=== PATIENT | female | born 2000 | race Caucasian/White ===

== ENCOUNTER 2024-11-26 13:20 | Outpatient (AMB) | payer OTHER, SELFPAY ==
--- NOTE | 2024-11-26 13:21 | MHC.OFFVIS ---
Vital Signs 11/26/24 13:24 Height 5 ft 10 in Weight 160 lb 14.999 oz BMI 23.1 BP 100/70 Blood Pressure Location Lt brachial Position Sitting Pulse 80 Pulse Source Pulse Oximeter Pulse Oximetry (%) 98 Oxygen Delivery Method Room Air Intake Visit Reasons: Hx of Asthma Canine Service Teacher Required: No Accompanied by: Self / Same As Patient Allergies No Known Allergies Allergy (Verified 11/26/24 13:24) HPI Comments Details: The patient is here for pulmonary evaluation. The patient is a 23 year woman with a known history of asthma who apparently has been in usual state health until recently back in the winter of 2024 she started developing asthma exacerbation after developing a viral syndrome. She did require prednisone. She did go to urgent care at that time and she was treated effectively. At baseline she does use Asmanex and does have a rescue inhaler. 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 Prior to her raises she would use her Ventolin as needed 15 minutes before just to preemptively get her ready for the race. The patient has not had to do that since she is not raising any longer. But she still has a rescue inhaler but typically does not use it more than twice a month. Usually the fall and spring her worst seasons in the winter tends to be a better season. She does take Asmanex 2 inhalations daily she can always decrease to 1 inhalation daily during her winter season. The patient also had been using Singulair but she is not using any longer. She did have pulmonary spirometry studies done back in September of 2023 elsewhere. 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 The patient will undergo pulmonary function studies with the next visit sometime in June of 2025. If she develops any issues prior to this she can always call for an earlier assessment. [facility] Medical History (Updated 11/26/24 @ 21:29 by Arsenio Peres MD) Chronic allergic rhinitis Asthma Social History (Updated 11/26/24 @ 13:27 by Patt Yan CMA) Patient Tobacco Use Status: Never used Tobacco Review of Systems Const Denies fever(s) Eyes Reports no additional complaints ENT Reports nasal congestion Card Denies chest pain Resp Reports cough and Denies wheezing GI Reports no additional complaints Musc Reports no additional complaints Skin/Breast Denies rash Neuro Reports no additional complaints Karan/Lymph Reports no additional complaints Aller/Immun Denies wheezing Physical Exam Vital Signs: Last Vital Signs Pulse 80 11/26/24 13:24 BP 100/70 11/26/24 13:24 Pulse Ox 98 11/26/24 13:24 Oxygen Delivery Method Room Air 11/26/24 13:24 BMI result Body Mass Index 23.1 Const General: comfortable HEENT Head: Yes normocephalic Eyes General: appearance normal, both eyes and all related structures Neck Neck: Yes supple Chest Chest palpation & inspection: normal inspection of the chest Resp Effort & Inspection: normal respiratory effort Auscultation: clear to auscultation bilaterally Cardio Rate: regular rate Rhythm: regular rhythm Heart sounds: S1 normal heart sound present and S2 normal heart sound present GI Palpation (GI): Soft to palpation Skin General skin exam: no rashes or lesions noted Extrem General: Yes no clubbing, cyanosis or edema Assessment & Plan Assessment & Plan (1) Asthma: Code(s): J45.909 - Unspecified asthma, uncomplicated Category: Medical Qualifiers: Asthma severity: moderate Asthma persistence: persistent Asthma complication type: uncomplicated Qualified Code(s): J45.40 - Moderate persistent asthma, uncomplicated (2) Chronic allergic rhinitis: Code(s): J30.9 - Allergic rhinitis, unspecified Category: Medical Plan continue Asmanex HFA ALEXSANDRA as needed Consider Singulair Anti histamine as needed F/U 6-8 months with PFTs Orders: Orders PFT pulmonary function test 7 Months J45.40 - Moderate persistent asthma, uncomplicated Medications: New albuterol sulfate 90 mcg/actuation (Ventolin HFA) 2 inhalations inhalation Q6H PRN 8.5 grams 11RF shortness of breath or wheezing 30 days mometasone 100 mcg/actuation (Asmanex HFA) 1 inh inhalation BID 13 grams 11RF 30 days Coding Level of Care Code New Pt Level 4 (81178) Diagnoses Moderate persistent asthma without complication J45.40 Asthma severity: moderate Asthma persistence: persistent Asthma complication type: uncomplicated Chronic allergic rhinitis J30.9 Time Spent (min) 35
[2024-11-26 13:24] VITALS: BP 100/70; PULSE 80; O2SAT 98; BMI 23.1
--- OUTSIDE RECORDS SUMMARY | 2024-11-26 15:45 | XMS_ITS | Encounter Summary ---
Author Organization [facility] Address [address] [place] [address] Phone Care Team Providers Care Strategic Partner Development Manager Name Role Phone Arabella Paula MD Primary Care Provider Reason for Visit * Reason Comments Med Refill Encounter Details Date Type Department Care Team (Late st Contact Info) Description 04/25/2021 Refill [facility] [place] [address] [place] [address] Arabella Paula MD [address] [facility] [address] [place] [address] Other acute gastritis without hemorrhage Social History Tobacco Use Types Packs/Day Years Used Date Smoking Tobacco: Never Assessed Comments Unknown Sex and Gender Information Value Date Recorded Sex Assigned at Not on file Legal Sex Female 3:11 PM EDT Gender Identity Female 11/24/2020 3:38 PM EDT Sexual Orientation Not on file documented as of this encounter Miscellaneous Notes * Telephone Encounter - Lady Machado - 05/13/2021 10:56 AM EDT Called mom and she stated that she does not want to schedule a f/u for the stomach issues but that she will cb to schedule the WCV, FYI to LG * Telephone Encounter - Lady Machado - 05/05/2021 10:11 AM EDT Left message to call back and schedule appointment. * Telephone Encounter - Lady Machado - 04/27/2021 11:04 AM EST Left message to call back and schedule appointment and sent a portal message * Telephone Encounter - Arabella Paula MD - 04/27/2021 8:11 AM EST I will refill Portia's Prilosec, but she needs to be seen for a follow-up. Can someone call her to arrange? Thanks. documented in this encounter Plan of Treatment Not on file documented as of this encounter Visit Diagnoses Diagnosis Other acute gastritis without hemorrhage documented in this encounter Care Teams Strategic Partner Development Manager Relationship Specialty Start Date End Date Arabella Paula MD [address] [place] [id number] PCP - General Pediatrics 11/24/20 03/02/23 documented as of this encounter
--- OUTSIDE RECORDS SUMMARY | 2024-11-26 15:45 | XMS_ITS | Encounter Summary ---
Author Organization [facility] Address [address] [place] [address] Care Team Providers Care Dust Collector Treater Name Role Phone Lela Miller MD Primary Care Provider Reason for Visit * Reason Comments Medication Refill Encounter Details Date Type Department Care Team (Late st Contact Info) Description 08/08/2018 Refill [facility] [address] [facility], [address] [place] [address] Melany Gandhi MD [address] [place] [phone] Social History Tobacco Use Types Packs/Day Years Used Date Smoking Tobacco: Never Smokeless Tobacco: Never Comments Unknown Sex and Gender Information Value Date Recorded Sex Assigned at Female 09/23/2022 1:56 PM EDT Legal Sex Female 10:03 PM EDT Gender Identity Gender Neutral 07/01/2023 10:45 AM EDT Sexual Orientation Choose not to disclose 2023 10:45 AM EDT documented as of this encounter Plan of Treatment Not on file documented as of this encounter Visit Diagnoses Not on filedocumented in this encounter Care Teams Dust Collector Treater Relationship Specialty Start Date End Date Lela Miller MD [address] [facility] [address] [place] [address] PCP - General Family Medicine 09/29/20 documented as of this encounter
--- OUTSIDE RECORDS SUMMARY | 2024-11-26 15:45 | XMS_ITS | Encounter Summary ---
Author Organization [facility] Address [address] [facility] [address] [place] [address] Phone Care Team Providers Care It Solutions Sales Consultant Name Role Phone Pcp, Unknown Primary Care Provider Lela Bowles MD Primary Care Provider Encounter Details Date Type Department Care Team (Late st Contact Info) Description 02/23/2021 Transcribe Orders Virtual Department [address] [place] [address] Evy Maxwell, [address] [place] [address] Social History Tobacco Use Types Packs/Day Years Used Date Smoking Tobacco: Never Assessed Comments Unknown Sex and Gender Information Value Date Recorded Sex Assigned at Female 12/24/2022 11:38 PM EDT Legal Sex Female 3:39 PM EST Gender Identity Non-binary 12/24/2022 11:38 PM EDT Sexual Orientation Queer 12/24/2022 11 :38 PM EDT documented as of this encounter Plan of Treatment Upcoming Encounters Date Type Department Care Team (Late st Contact Info) Description 04/18/2025 1:00 PM EST Office Visit [facility] [address] [facility] [address] [place] [address] Luis Jasmine MD [address] [facility] [address] [place] [address] documented as of this encounter Visit Diagnoses Not on filedocumented in this encounter Care Teams It Solutions Sales Consultant Relationship Specialty Start Date End Date Pcp, Unknown PCP - General 02/23/21 02/22/22 Lela Miller MD [address] [facility] [address] [place] [address] PCP - General Family Medicine 02/23/22 documented as of this encounter Additional Source Comments The information contained in this document represents components of the legal health record. It is not the complete legal health record.[facility]
--- OUTSIDE RECORDS SUMMARY | 2024-11-26 15:45 | XMS_ITS | Encounter Summary ---
Author Organization [facility] Address [address] [address] Care Team Providers Care Archivist Military History Name Role Phone Lela Miller MD Primary Care Provider [phone] Encounter Details Date Type Department Care Team ([facility] st Contact Info) Description 05/12/[address] [facility] at [address] [place] [address], [address]rd [address] Cheyenne Troy MD [address] [place] [address] Lumbar radiculitis (Primary Dx) Social History Tobacco Use Types Packs/Day Years Used Date Smoking Tobacco: Never Smokeless Tobacco: Never Alcohol Use Standard Drinks/Week Comments Never 0 (1 standard drink = 0.6 oz pur e alcohol) Health Literacy Answer Date Recorded How often do you need to hav e someone help you when you read instructions, pamphlets, or other written material from your doctor or pharmacy? Rarely 03/01/2022 Comments Unknown Sex and Gender Information Value Date Recorded Sex Assigned at Female 02/28/2022 1:40 PM EST Legal Sex Female 4:53 PM EST Gender Identity Gender Non-Conforming 02/28/2022 1:40 PM EST Sexual Orientation Don't know 02/28/2022 1: 40 PM EST documented as of this encounter Plan of Treatment Not on file documented as of this encounter Visit Diagnoses Diagnosis Lumbar radiculitis- Primary documented in this encounter Care Teams Archivist Military History Relationship Specialty Start Date End Date Lela Miller MD [address] [place] [address] PCP - General 02/28/22 documented as of this encounter
--- OUTSIDE RECORDS SUMMARY | 2024-11-26 15:45 | XMS_ITS | Encounter Summary ---
Author Organization [facility] Address [address] [place] [address] Care Team Providers Care Tire Specialist Name Role Phone Lela Miller MD Primary Care Provider Reason for Referral * Diagnostic Imaging (Routine) - Closed Specialty Diagnoses / Procedures Referred By Chano t Referred To Contact Diagnoses Secondary physiologic amenorrhea Procedures US pelvic Argenis Doe MD [address] [place] [address] Phone: tel: fax: Referral ID Status Reason Start Date Expiration Date Visits Re quested Visits Authorized [id number] Closed 02/08/2022 02/08/2023 1 1 Encounter Details Date Type Department Care Team (Latest Contact Info) Description 02/08/2022 Transcribe Orders S [facility] [address] [address] Argenis Doe MD [address] [place], [place] [id number] 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 No 09/15/2021 Emotionally Abused Not on file 09/15/2021 Physically Abused Not on file 09/15/2021 Sexually Abused Not on file 09/15/2021 Social Connection and Isolat ion Panel [NHANES] Answer Date Recorded In a typical week, how many times do you talk on the phone with family, friends, or neighbors? More than three times a week 09/15/2021 Frequency of Social Gatherin gs with Friends and Family Not on file 09/15/2021 Attends [employer] Not on file 09/15 Active Member of Clubs or Organizations Not on f ile 09/15/2021 Attends Club or Organization Meetings Not on kala e 09/15/2021 Marital Status Not on file 09/15/2021 Overall Financial Resource Strain (CARDIA) Answe r Date Recorded How hard is it for you to pa y for the very basics like food, housing, medical care, and heating? Not hard at all 09/15/2021 PHQ-2 Answer Date Recorded PHQ-2 Total Score 0 09/29/2021 Hunger Vital Sign Answer Date Recorded Within the past 12 months, y ou worried that your food would run out before you got the money to buy more. Never true 09/16/19 22 Ran Out of Food in the Last Year Not on file 09/15/2021 PRAPARE - Transportation Answer Date Re corded In the past 12 months, has l ack of transportation kept you from medical appointments or from getting medications? No 09/15/2021 Lack of Transportation (Non-Medical) Not on file 09/15/2021 Housing Stability Vital Sign Answer Mak e Recorded In the last 12 months, was t here a time when you were not able to pay the mortgage or rent on time? No 09/15/2021 Number of Places Lived in the Last Year Not on f ile 09/15/2021 Unstable Housing in the Last Year Not on file 09/15/2021 Comments Unknown Sex and Gender Information Value Date Recorded Sex Assigned at Female 09/23/2022 1:56 PM EDT Legal Sex Female 10:03 PM EDT Gender Identity Gender Neutral 07/01/2023 10:45 AM EDT Sexual Orientation Choose not to disclose 2023 10:45 AM EDT Occupation Industry Job Start Date Job End Date [employer] Not on file Not on file Not on file documented as of this encounter Plan of Treatment Not on file documented as of this encounter Results * US pelvic (02/15/2022 10:04 AM EST) Anatomical Region Laterality Modality Pelvis, Body Ultrasound Impressions 02/15/2022 4:54 PM EST Normal transabdominal pelvic ultrasound. Narrative 02/15/2022 4:54 PM EST CLINICAL HISTORY: N91.1; LMP: 10/2020 US PELVIC COMPARISON: 08/27/2021 FINDINGS: UTERUS: 6.8 x 2.3 x 3.1 cm. No focal myometrial finding. ENDOMETRIUM: 5 mm. Normal thickness. No focal finding. RIGHT OVARY: 2.9 x 2.6 x 2.1 cm (8.6 cc). Normal appearing follicles. Normal color Doppler and spectral waveforms LEFT OVARY: 2.0 x 3.1 x 1.8 cm (6.1 cc). Normal appearing follicles. Normal color Doppler and spectral waveforms. ADNEXA/OTHER: No additional findings. FREE FLUID: Trace in the cul-de-sac, likely physiologic. Resulting Agency Comment [id number] Procedure Note Eugene Huitron MD - 02/15/2022 CLINICAL HISTORY: N91.1; LMP: 10/2020 US PELVIC COMPARISON: 08/27/2021 FINDINGS: UTERUS: 6.8 x 2.3 x 3.1 cm. No focal myometrial finding. ENDOMETRIUM: 5 mm. Normal thickness. No focal finding. RIGHT OVARY: 2.9 x 2.6 x 2.1 cm (8.6 cc). Normal appearing follicles.Normal color Doppler and spectral waveforms LEFT OVARY: 2.0 x 3.1 x 1.8 cm (6.1 cc). Normal appearing follicles.Normal color Doppler and spectral waveforms. ADNEXA/OTHER: No additional findings. FREE FLUID: Trace in the cul-de-sac, likely physiologic. IMPRESSION: Normal transabdominal pelvic ultrasound. us Argenis Mark MD G US ORDERABLES Final Result documented in this encounter Visit Diagnoses Diagnosis Secondary physiologic amenorrhea- Primary Absence of menstruation Secondary physiologic amenorrhea Absence of menstruation documented in this encounter Care Teams Tire Specialist Relationship Specialty Start Date End Date Pozner, Lela Cecelia, MD [address] [place] [address] PCP - General Family Medicine 09/29/20 documented as of this encounter
--- OUTSIDE RECORDS SUMMARY | 2024-11-26 15:45 | XMS_ITS | Clinical Summary ---
Author Organization [facility] Address [address] [place] [address] Phone Care Team Providers Care Senior Mobile Developer Name Role Phone Unavailable Primary Care Provider Unavailabl e Allergies No known active allergies Medications Magnesium 200 MG tablet Take 200 mg by mouth. Active fluticasone HFA (Flovent HFA) 110 MCG/ACT inhaler Inhale 1 puff 2 (two) times a day. 08/19/2020 Active cetirizine 10 MG tablet Take 10 mg by mouth daily. Active levalbuterol 0.63 MG/3ML nebulizer solution Inhale 1 ampule every 4 hours as needed. 09/25/2020 Active pantoprazole 40 MG EC tabletIndication s:Other acute gastritis without hemorrhage TAKE 1 TABLET BY MOUTH EVERY DAY 90 tablet 04/27/2021 Active Active Problems Problem Noted Date Diagnosed Date Low back pain 03/12/2022 Overview (03/12/2022): 02/2022 - Seen by provider in [facility] ([facility]). Diagnosed with acute onset of primarily axial LBP in a collegiate swimming - c/w central disc hernations at L3-4, L4-5 and L5-S1 with central and R subarticular stenosis at L3-4 causing rare R L4 radicular pain Referred to physical therapy. Irregular menses 08/28/2021 Overview (08/28/2021): 08/2021 - Normal transabdominal pelvic ultrasound History of COVID-19 02/17/2021 Gastritis 12/26/2020 Overview (12/26/2020): Seen by PCP in [place] last month (currently a freshman at [employer]). Had complaints of daily abdominal pain and nausea. Did ultrasound of abdomen due to concern for gallstones. Had negative scan. Diagnosed with presumed gastritis. Started on pantoprazole 40mg daily with improvement in symptoms. PCP had recommended referral to GI. Normal and reassuring exam today. Advised to continue daily pantoprazole. Prescription sent to pharmacy. Also referral placed to GI per patient/parent request. Advised to call [facility] GI directly to schedule. Assessment & Plan (12/26/2020 1:57 PM EDT): Seen by PCP in [place] last month (currently a freshman at [employer]). Had complaints of daily abdominal pain and nausea. Did ultrasound of abdomen due to concern for gallstones. Had negative scan. Diagnosed with presumed gastritis. Started on pantoprazole 40mg daily with improvement in symptoms. PCP had recommended referral to GI. Normal and reassuring exam today. Advised to continue daily pantoprazole. Prescription sent to pharmacy. Also referral placed to GI per patient/parent request. Advised to call [facility] GI directly to schedule. Asthma Scoliosis Immunizations Immunization Administration Dates Next Due DTaP 03/27/2004 DTaP / HiB / IPV 06/19/2003,04/18/2003, 3 DTaP / IPV 12/20/2006 HPV, Quadrivalent 07/14/2017,12/30/2016 Hep A, ped/adol 12/20/2006,12/24/2005 Hep B, ped/adol 06/19/2003,04/18/2003,02/12/2003 HiB 03/27/2006 Influenza, injectable,marcus valent, preservative free, pediatric 10/10/2019,11/27/2004,11/23/2004,01/02,11/28/2003 Influenza, intranasal, quadrivalent 10/22,10/27/2012,10/26/2011,11/11,12/12/2009 MMR 12/20/2006,01/03/2004 Meningococcal B Bexsero 10/20/2019,09/11/2019 Meningococcal Conj (Menactra) MCV4P 09/11/2019,1 Pneumococcal Conjugate 13-Valent 007,09/20/2003,04/18/2003,02/12 Tdap 12/19/2013 Varicella 12/21/2007,01/03/2004 Family History Medical History Relation Name Comments Mental illness Brother Allergic rhinitis Father Psoriasis Father Scoliosis Father Cancer Maternal Grandfather Heart attack Maternal Grandfather Hypertension Maternal Grandfather Nephrolithiasis Maternal Grandfather Vesicoureteral reflux Maternal Grandfather GI problems Maternal Grandmother Hypertension Maternal Grandmother Thyroid disease Maternal Grandmother Cancer Mother GI problems Mother's Brother GI problems Mother's Sister Mental illness Mother's Sister Diabetes Paternal Grandfather Hyperlipidemia Paternal Grandfather Relation Name Status Comments Brother Father elevated biliru bin level Maternal Grandfather Maternal Grandmother colitis Mother Mother's Brother colitis Mother's Sister IBS Paternal Grandfather Social History Tobacco Use Types Packs/Day Years Used Date Smoking Tobacco: Never Assessed Comments Unknown Sex and Gender Information Value Date Recorded Sex Assigned at Not on file Legal Sex Female 3:11 PM EDT Gender Identity Female 11/24/2020 3:38 PM EDT Sexual Orientation Not on file Last Filed Vital Signs Vital Sign Reading Time Taken Comments Blood Pressure 102/60 07/02/2020 6:55 PM EDT Pulse 92 07/02/2020 6:55 PM EDT Temperature 36.2 C (97.1 F) 12/26/2020 11:43 AM EDT Respiratory Rate - - Oxygen Saturation - - Inhaled Oxygen Concentration - - Weight 67.9 kg (149 lb 9.6 oz) 12/26/2020 11:43 AM EDT Height 177.8 cm (5' 10 ) 09/11/2019 6:59 PM EDT Body Mass Index - - Plan of Treatment Health Maintenance Due Date Last Done Comments DTaP,Tdap,and Td Vaccines (7 - Td or Tdap) 12/20/2023 12/19/2013, 12/20/2006, 03/27/2004, Additional history exists Influenza Vaccines (#1) 2024 10/11/19, 10/10/2019, 11/18/2018, Additional history exists COVID-19 Vaccine (6 2024-2 6 season) 2024 11/07/2022, 07/06/2021, 10/24/2020, Additional history exists Hepatitis B Vaccines Completed 06/19/2003, 04/18/2003, 02/12/2003 HIB Vaccines Completed 03/27/2006, 05/23, 04/18/2003, Additional history exists Pneumococcal Vaccine Completed 03/27/2006, 09/20/2003, 04/18/2003, Additional history exists Hepatitis A Vaccines Completed 12/20/2006, 12/25/19 06 IPV Vaccines Completed 12/20/2006, 05/23, 04/18/2003, Additional history exists MMR Vaccines Completed 12/20/2006, 01/03/2004 Varicella Vaccines Completed 12/21/2007, 01/03/2004 HPV Vaccines Completed 07/14/2017, 12/30/2016 Meningococcal Vaccine Completed 09/11/2019, 014 Men B Vaccine Completed 10/20/2019, 09/11/2019
--- OUTSIDE RECORDS SUMMARY | 2024-11-26 15:45 | XMS_ITS | Encounter Summary ---
Author Organization [facility] Address [address] [place] [address] Phone Care Team Providers Care Java Developer Analyst Name Role Phone Arabella Paula MD Primary Care Provider [phone] Reason for Visit * Reason Comments Med Refill Encounter Details Date Type Department Care Team (Late st Contact Info) Description 01/20/2021 Refill [facility] [place] [address] [place] [address] Arabella Paula MD [address] [place] [address] Other acute gastritis without hemorrhage Social History [...] hemorrhage documented in this encounter Care Teams Java Developer Analyst Relationship Specialty Start Date End Date Arabella Paula MD [address] [address] PCP - General Pediatrics 11/24/20 03/02/23 documented as of this encounter
--- OUTSIDE RECORDS SUMMARY | 2024-11-26 15:45 | XMS_ITS | Encounter Summary ---
Author Organization [facility] Address [address] [place] [address] Care Team Providers Care Bread Molder Name Role Phone Lela Miller MD Primary Care Provider Encounter Details Date Type Department Care Team (Late st Contact Info) Description 05/06/2017 Transcribe Orders [address] [address] Xena Edmonds MD [address] [place] [address] Social History Tobacco Use Types Packs/Day Years [...] on filedocumented in this encounter Care Teams Bread Molder Relationship Specialty Start Date End Date Lela Miller MD [address] [address] PCP - General Family Medicine 09/29/20 documented as of this encounter
--- OUTSIDE RECORDS SUMMARY | 2024-11-26 15:45 | XMS_ITS | Clinical Summary ---
Author Organization [facility] for [facility] Surgery Address [address] [place] [id number] Care Team Providers Care Chuck Splitter Name Role Phone Lela Miller MD Primary Care Provider [phone] Allergies Active Allergy Reactions Criticality Noted Date Comments Oxycodone GI Intolerance,Nausea And Vomiting 0 02/23/2022 Medications vitamin W66-dwrfp acid 0.5-1 mg tabletIndicatio ns:supplement Take 1 tablet by mouth daily Indications: supplement. Active fluticasone propionate (FLOVENT HFA) 110 mcg/actuation inhalerIndicati ons:maintenance therapy for asthma,seasonal allergy Inhale ONE puff 2 (two) times a day as needed Indications: controller medication for asthma, seasonal allergy. Active levalbuterol (XOPENEX HFA) 45 mcg/actuation inhalerIndicati ons:acute asthma attack Inhale ONE puff every 6 (six) hours as needed for wheezing Indications: asthma attack. Active multivit with iron,minerals (MULTIVITAMIN WITH IRON-MINERAL ORAL)Indication s:supplement Take 1 tablet by mouth daily Indications: supplement. Active magnesium 200 mg tabletIndicatio ns:supplement Take 200 mg by mouth daily Indications: supplement. Active DIET SUPP 21-CALCIUM PHOSPHATE ORAL Activ e tacrolimus (PROTOPIC) 0.1 % ointment 3 Active Active Problems Problem Noted Date Diagnosed Date Lumbar radiculitis 05/12/2022 Overview (05/12/2022): Added automatically from request for surgery [id number] Acute on chronic axial low b ack pain due to multilevel disc herniation (L3-L4, L4-L5, L5-S1) with radicular features now resolved s/p L4 TFESI. Now with trace R EHL weakness 03/01/2022 Assessment & Plan (09/20/2022 12:59 PM EDT): Education Discussed the pathophysiology, natural history and spectrum of treatment options. Reviewed the importance of regular physical activity and maintenance of ideal body weight in improving and preventing spine pain. All questions were answered. 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 Activity: Discussed training modifications to avoid recurrence of pain Follow-up In 6-8 weeks, or sooner if no better Pending results of EMG, consider repeat MRI L-Spine Assessment & Plan (03/02/2022 10:31 AM EST): Education Discussed the pathophysiology, natural history and spectrum of treatment options. Discussed partial medical clearance for swimming and need for gradual return All questions were answered. Diagnostic Testing Lumbar Spine MRI was reviewed in detail with patient and their mother Pain control OTC medications: Discussed the risks and benefits of acetaminophen 500mg every six hours prn pain (do not exceed 3,000mg per day) Rx medications: they declined Injection: none at this time Rehabilitation Refer to physical therapy: mechanical diagnosis and treatment, lumbopelvic/core stability, hip ROM, LE flexibility, biomechanics and ergonomics education, HEP Activity: Discussed return to swimming. Ok to get back into pool as long as pain does not signficantly increase with swimming. Start with lower intensity/frequency, and can increase if doing ok. No flip turns for now. League Championship Mid/end of Mar. 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 Will provide patient with letter to [employer] that she requires a car/parking pass to attend physical therapy Follow-up In 2 weeks via telemedicine, or sooner if no better If no better: Diagnostic testing: Repeat MRI Medications: Trial of gabapentin Procedure: AMINTA Surgical consultation Immunizations Immunization Administration Dates Next Due DTaP 03/27/2004 DTaP / HiB / IPV 06/19/2003,04/18/2003, 3 DTaP / IPV 12/20/2006 DTaP, Unspecified 03/27/2004 H1N1 Inj 02/05/2009,12/30/2008 HPV Quadrivalent 07/14/2017,12/30/2016 Hep A, 2 Dose 12/20/2006, 7,12/24/2005,12/24 Hep B, Adolescent or Pediatric 06/19/2003,2003,02/12/2003 HiB 03/27/2006 Influenza (IM) 6-35 MO 10/10/2019,2004,11/23/2004,01/02,11/28/2003 Influenza, Inj. Quadrivalent , Preservative Free 10/11/2019 Influenza, Quadrivalent 11/02/2013,10/27,10/26/2011,11/11,12/12/2009 Influenza, Unspecified 11/18/2018,2017,10/27/2016,12/16,11/13/2014,11/19/2008,12/21/2007 ,12/08/2006,12/03/2005 MMR 12/20/2006,01/03/2004 Meningococcal B, Omv 10/20/2019,09/11/2019 Meningococcal MCV4P 09/11/2019,12/19/2013 Moderna Sars-cov-2 Vaccination 07/06/2021 Pfizer Sars-cov-2 Vaccinatio n (12+ yrs) 10/24/2020,04/11/2020,03/19/2020 Pneumococcal Conjugate 13-Valent 007,09/20/2003,04/18/2003,02/12 Tdap 12/19/2013 Varicella 12/21/2007,01/03/2004 Social History Tobacco Use Types Packs/Day Years Used Date Smoking Tobacco: Never Smokeless Tobacco: Never Tobacco Cessation:Counseling Given: Not Answered Alcohol Use Standard Drinks/Week Comments Never 0 (1 standard drink = 0.6 oz pur e alcohol) Health Literacy Answer Date Recorded How often do you need to hav e someone help you when you read instructions, pamphlets, or other written material from your doctor or pharmacy? Rarely 03/01/2022 Comments No Sex and Gender Information Value Date Recorded Sex Assigned at Female 02/28/2022 1:40 PM EST Legal Sex Female 4:53 PM EST Gender Identity Gender Non-Conforming 02/28/2022 1:40 PM EST Sexual Orientation Don't know 02/28/2022 1: 40 PM EST Last Filed Vital Signs Vital Sign Reading Time Taken Comments Blood Pressure 106/52 07/01/2022 12:44 PM EDT Pulse 69 07/01/2022 12:26 PM EDT Temperature 36.5 C (97.7 F) 07/01/2022 12:26 PM EDT Respiratory Rate 17 07/01/2022 12:26 PM EDT Oxygen Saturation 99% 07/01/2022 12:26 PM EDT Inhaled Oxygen Concentration - - Weight 68 kg (150 lb) 06/30/2022 9:09 AM EDT Height 177.8 cm (5' 10 ) 06/30/2022 9:09 AM EDT Body Mass Index 21.52 06/30/2022 9:09 AM EDT Plan of Treatment Health Maintenance Due Date Last Done Comments COVID-19 Vaccine (2024- 6 season) 2024 07/06/2021, 10/24/2020, 04/11/2020, Additional history exists INFLUENZA VACCINE 10/22/2024 10/11/2019, , 11/18/2018, Additional history exists Insurance [employer]NA BMI BENEFITS AETNA BMI BENEFITS AETNA [facility] BENEFITS AETNA BMI BENEFITS AETNA BMI BENEFITS AETNA BMI BENEFITS AETNA BMI BENEFITS AETNA BMI BENEFITS AETNA BMI BENEFITS Member Subscriber Plan / Payer (Ef fective 2021-Present) Name:Portia Zhao Relation to Subscriber:Self Name:Portia Zhao Payer ID:Not on file Group ID:Not on file Type:Not on file Address: [place] [id number] [employer] BMI BENEFITS AETNA BMI BENEFITS AETNA BMI BENEFITS AETNA BMI BENEFITS AETNA BMI BENEFITS AETNA BMI BENEFITS AETNA BMI BENEFITS AETNA BMI BENEFITS AETNA BMI BENEFITS AETNA BMI BENEFITS AETNA BMI BENEFITS Member Subscriber Plan / Payer (Ef fective 2021-) Name:Portia Zhao Relation to Subscriber:Self Name:Portia Zhao Payer ID:Not on file Group ID:Not on file Type:Not on file Address: [place] [id number] AETNA BMI BENEFITS AETNA [facility] BENEFITS AETNA BMI BENEFITS AETNA BMI BENEFITS AETNA BMI BENEFITS AETNA BMI BENEFITS AETNA BMI BENEFITS [facility] BENEFITS AETNA BMI BENEFITS AETNA BMI BENEFITS AETNA BMI BENEFITS AETNA BMI BENEFITS AETNA BMI BENEFITS AETNA BMI BENEFITS AETNA BMI BENEFITS AETNA BMI BENEFITS AETNA BMI BENEFITS AETNA BMI BENEFITS AETNA [facility] BENEFITS AETNA BMI BENEFITS AETNA BMI BENEFITS AETNA BMI BENEFITS AETNA BMI BENEFITS AETNA BMI BENEFITS AETNA BMI BENEFITS AETNA BMI BENEFITS AETNA BMI BENEFITS AETNA BMI BENEFITS AETNA BMI BENEFITS AETNA [facility] BENEFITS AETNA BMI BENEFITS AETNA BMI BENEFITS AETNA BMI BENEFITS AETNA BMI BENEFITS AETNA BMI BENEFITS AETNA BMI BENEFITS AETNA BMI BENEFITS AETNA BMI BENEFITS AETNA BMI BENEFITS AETNA BMI BENEFITS AETNA [facility] BENEFITS AETNA BMI BENEFITS AETNA BMI BENEFITS AETNA BMI BENEFITS AETNA BMI BENEFITS AETNA BMI BENEFITS AETNA BMI BENEFITS Member Subscriber Plan / Payer (Ef fective 2021-Present) Name:Portia Zhao Relation to Subscriber:Self Name:Portia Zhao Payer ID:Not on file Group ID:Not on file Type:Not on file Address: [place] [id number] A[employer] BMI BENEFITS AETNA BMI BENEFITS AETNA BMI BENEFITS AETNA BMI BENEFITS AETNA BMI BENEFITS AETNA BMI BENEFITS AETNA BMI BENEFITS AETNA BMI BENEFITS AETNA BMI BENEFITS AETNA BMI BENEFITS AETNA BMI BENEFITS AETNA BMI BENEFITS AETNA [facility] BENEFITS AETNA BMI BENEFITS AETNA BMI BENEFITS AETNA BMI BENEFITS AETNA BMI BENEFITS AETNA BMI BENEFITS AETNA BMI BENEFITS AETNA BMI BENEFITS AETNA BMI BENEFITS AETNA BMI BENEFITS AETNA BMI BENEFITS AETNA BMI BENEFITS AETNA BMI BENEFITS AETNA BMI BENEFITS AETNA BMI BENEFITS AETNA BMI BENEFITS AETNA BMI BENEFITS AETNA [facility] BENEFITS AETNA BMI BENEFITS AETNA BMI BENEFITS AETNA BMI BENEFITS Member Subscriber Plan / Payer (Ef fective 2021-Present) Name:Portia Zhao Relation to Subscriber:Self Name:Portia Zhao Payer ID:Not on file Group ID:Not on file Type:Not on file Address: [place] [id number] A[employer] BMI BENEFITS AETNA BMI BENEFITS AETNA BMI BENEFITS AETNA BMI BENEFITS AETNA BMI BENEFITS AETNA BMI BENEFITS AETNA BMI BENEFITS AETNA [facility] BENEFITS AETNA BMI BENEFITS AETNA BMI BENEFITS AETNA BMI BENEFITS AETNA BMI BENEFITS AETNA BMI BENEFITS AETNA BMI BENEFITS AETNA BMI BENEFITS AETNA BMI BENEFITS AETNA BMI BENEFITS AETNA BMI BENEFITS AETNA BMI BENEFITS AETNA BMI BENEFITS AETNA BMI BENEFITS AETNA BMI BENEFITS AETNA BMI BENEFITS AETNA BMI BENEFITS AETNA BMI BENEFITS Member Subscriber Plan / Payer (Ef fective 2021-Present) Name:Portia Zhao Relation to Subscriber:Self Name:Portia Zhao Payer ID:Not on file Group ID:Not on file Type:Not on file Address: [place] [id number] AETNA BMI BENEFITS AETNA [facility] BENEFITS AETNA BMI BENEFITS AETNA BMI BENEFITS AETNA BMI BENEFITS AETNA BMI BENEFITS AETNA BMI BENEFITS AETNA BMI BENEFITS AETNA BMI BENEFITS AETNA BMI BENEFITS AETNA BMI BENEFITS AETNA BMI BENEFITS AETNA [facility] BENEFITS AETNA BMI BENEFITS AETNA BMI BENEFITS AETNA BMI BENEFITS AETNA BMI BENEFITS AETNA BMI BENEFITS AETNA BMI BENEFITS AETNA BMI BENEFITS AETNA BMI BENEFITS AETNA BMI BENEFITS AETNA BMI BENEFITS AETNA BMI BENEFITS AETNA BMI BENEFITS Member Subscriber Plan / Payer (Ef fective 2021-Present) Name:Portia Zhao Relation to Subscriber:Self Name:Portia Zhao Payer ID:Not on file Group ID:Not on file Type:Not on file Address: [place] [id number] AETNA BMI BENEFITS AETNA BMI BENEFITS AETNA BMI BENEFITS AETNA BMI BENEFITS AETNA [facility] BENEFITS AETNA BMI BENEFITS AETNA BMI BENEFITS AETNA BMI BENEFITS AETNA BMI BENEFITS AETNA BMI BENEFITS AETNA BMI BENEFITS AETNA BMI BENEFITS AETNA BMI BENEFITS AETNA BMI BENEFITS AETNA BMI BENEFITS AETNA [facility] BENEFITS AETNA BMI BENEFITS AETNA BMI BENEFITS AETNA BMI BENEFITS AETNA BMI BENEFITS AETNA BMI BENEFITS AETNA BMI BENEFITS AETNA BMI BENEFITS AETNA BMI BENEFITS AETNA BMI BENEFITS AETNA BMI BENEFITS AETNA BMI BENEFITS AETNA BMI BENEFITS AETNA BMI BENEFITS AETNA BMI BENEFITS AETNA BMI BENEFITS AETNA BMI BENEFITS AETNA BMI BENEFITS AETNA BMI BENEFITS Care Teams Chuck Splitter Relationship Specialty Start Date End Date Lela Miller MD [address] [place] [id number] PCP - General 02/28/22
--- OUTSIDE RECORDS SUMMARY | 2024-11-26 15:45 | XMS_ITS | Patient Health Record ---
Author Organization [facility] Address [address] [place] [address] Care Team Providers Care Medical Lab Technician Name Role Phone NO PCP, NO PCP Primary Care Provider Selvin Prado M.D [facility], Meredith Unavailable Allergies No Known Allergies Results Component Value Reference Range Notes Ultrasound Soft tissue neck Reviewed date:09/25/2024 01:21:54 PM Interpretation: Performing Lab: Notes/Report: Reason For Referral No Information Medications Medication SIG (Take, Route, Frequency, Duration) Notes Start Date End Date Status Estradiol-Levonorgestre l control 03/27/2024 Active Ambien 10 MG 1 tablet at bedtime as needed Orally Once a day Active Wellbutrin XL 300 MG 1 tablet in the morning Orally Once a day Active hydrOXYzine Pamoate 100 MG 1 capsule at bedtime as needed Orally Once a day Active Social History Tobacco Use: Social History Observation Description Date Details (start date - stop date) Never Smoker NA - NA Sex Assigned At : Social History Observation Description Sex Assigned At Female Smoking: Question Answer Notes Are you a : Never Smoker Alcohol Screen Question Answer Notes Did you have a drink contain ing alcohol in the past year? Yes How often did you have six o r more drinks on one occassion in the past year? Never (0 points) How many drinks did you have on a typical day when you were drinking in the past year? 1 or 2 (0 points) How often did you have a dri nk containing alcohol in the past year? Two to four times a month (2 points) Problems Problem Type SNOMED Code ICD Code Onset Dates Problem Status W/U Status Risk Notes Problem Thyroid nodule (692143352) Thyroid nodule (E04.1) Active confirmed Vital Signs Height 70 in 11/06/2024 Weight 160 lbs 11/06/2024 BMI 22.96 kg/m2 11/06/2024 Encounters Encounter Location Date Provider Diagnosis [facility] [address] [place] [address] 03/27/2024 Meredith Du Otalgia H92.09 ; Thyroid nodule E04.1 and Neck mass R22.1 [facility] [address] [place] [phone] 11/06/2024 Meredith Du Lymphadenopathy of h ead and neck R59.9 [facility] [address] [place] [phone] 03/27/2024 Meredith Du Assessments Encounter Date Diagnosis (ICD Code) Assessment Notes Treatment Notes Treatment Clinical Notes Section Notes 03/27/2024 Thyroid nodule (ICD-10 - E04.1) thyroid US reviewed, subcentimeter nodules without concerning features. Can f/u with cigar maker 03/27/2024 Otalgia (ICD-10 - H92.09) referred from right TMJ. Discussed supportive care as well as consider dental eval if persistent 11/06/2024 Lymphadenopathy of head and neck (ICD-10 - R59.9) Patient's thyroid US, as well as US from 02/2024 and 10/2024 reviewed. She has subcentimeter (0.5x0.3x0.5cm) lesions in the parotid which are stable and unchanged. In addition, she has bilateral cervical lymph nodes that are all stable in size. Largest 3x0.4x1.5 on the right and 2.7x0.5x1.4cm on the left. There is no growth from February to Oct. Morphology benign. Given characteristics as well as stability, low concern for malignant or pathologic process. Patient is asymptomtic as well. Discussed symptoms to monitor for (neck mass, fatigue, weight loss, night sweats) that would prompt a return to the office, otherwise, can see me prn. 03/27/2024 Neck mass (ICD-10 - R22.1) nothing palpable on exam today. In discussion with patient, it sounds like there is additional information from US that was not sent to me with report. She will try to obtain and send to the office so I can review. In addition, she is scheduled for MRI to evaluate for pituitary adenoma. I have asked her to obtain a CD of the MRI so that I can review the parotid region. 11/06/2024 Other Plan Of Treatment No Information Insurance Providers Payer Name Payer Address Payer Phone Subscriber Number Group Number Insured Name Patient Relationship to Insured Coverage Start Date [facility]age End [facility] [address] SIMEON Berrios [id number] Portia Zhao Self - patient is the insured Medical (General) History Medical History History ICD Code Patient Medical History: Asthma
--- OUTSIDE RECORDS SUMMARY | 2024-11-26 15:45 | XMS_ITS | Encounter Summary ---
[place] [address] Care Team Providers Care Dietary Cook Name Role Phone Lela Miller MD Primary Care Provider Reason for Visit * Reason Onset Date Comments Pulmonary Function Testing 08/27/2024 Encounter Details Date Type Department Care Team (Late st Contact Info) Description 08/27/2024 Telephone [facility] Pulmonology, Sleep, Allergy & Critical Care Medicine [address] [place] [address] Gentry Gagnon MD [address] [place] [address] Pulmonary Function Testing Social History Tobacco Use Types Packs/Day Years Used Date Smoking Tobacco: Never Smokeless Tobacco: Never Alcohol Use Standard Drinks/Week Comments Yes 0 (1 standard drink = 0.6 oz pur e alcohol) social B1300 Health Literacy Answer Date Recor ded How often do you need to hav e someone help you when you read instructions, pamphlets, or other written material from your doctor or pharmacy? Never 04/04/2024 [facility] Utilities Answer Date Recorded In the past 12 months has e [employer], gas, oil, or water App[employer] threatened to shut off services in your home? No 04/04/2024 Humiliation, Afraid, Rape, and Kick questionnair e Answer Date Recorded Within the last year, have y ou been afraid of your partner or ex-partner? No 09/23/2022 Emotionally Abused Not on file 09/23/2022 Physically Abused Not on file 09/23/2022 Sexually Abused Not on file 09/23/2022 Social Connection and Isolat ion Panel [NHANES] Answer Date Recorded In a typical week, how many times do you talk on the phone with family, friends, or neighbors? More than three times a week 04/04/2024 How often do you get togethe r with friends or relatives? More than three times a week 04/04/2024 How often do you attend chur ch or anabaptist services? Never 04/04/2024 Do you belong to any clubs o r organizations such as gnosticist groups, unions, fraternal or athletic groups, or school groups? Yes 04/04/2024 How often do you attend meet ings of the clubs or organizations you belong to? More than 4 times per year 04/04/2024 Are you , , di vorced, , never , or living with a partner? Never 04/04/2024 AUDIT-C Answer Date Recorded Q1: How often do you have a drink containing alc ohol? 2-4 times a month 04/04/2024 Q2: How many drinks containi ng alcohol do you have on a typical day when you are drinking? 1 or 2 04/04/2024 Q3: How often do you have si x or more drinks on one occasion? Never 04/04/2024 Overall Financial Resource Strain (CARDIA) Answe r Date Recorded How hard is it for you to pa y for the very basics like food, housing, medical care, and heating? Not hard at all 04/04/2024 PHQ-2 Answer Date Recorded PHQ-2 Total Score 5 10/11/2023 [facility] - Occupational Stress Questionnaire Answer Date Recorded Do you feel stress - tense, restless, nervous, or anxious, or unable to sleep at night because your mind is troubled all the time - these days? Very much 04/04/2024 Exercise Vital Sign Answer Date Recorde d On average, how many days pe r week do you engage in moderate to strenuous exercise (like a brisk walk)? 7 days 04/04/2024 On average, how many minutes do you engage in exercise at this level? 150+ min 04/04/2024 Hunger Vital Sign Answer Date Recorded Within the past 12 months, y ou worried that your food would run out before you got the money to buy more. Never true 04/04/19 25 Within the past 12 months, t he food you bought just didn't last and you didn't have money to get more. Never true 04/04/2024 PRAPARE - Transportation Answer Date Re corded In the past 12 months, has l ack of transportation kept you from medical appointments or from getting medications? No 03/24 In the past 12 months, has l ack of transportation kept you from meetings, work, or from getting things needed for daily living? No 04/04/2024 Housing Stability Vital Sign Answer Mak e Recorded In the last 12 months, was t here a time when you were not able to pay the mortgage or rent on time? No 09/28/2023 Number of Places Lived in the Last Year Not on f ile 09/28/2023 In the last 12 months, was t here a time when you did not have a steady place to sleep or slept in a penitentiary (including now)? No 09/28/2023 Housing Stability Vital Sign Answer Mak e Recorded In the last 12 months, was t here a time when you were not able to pay the mortgage or rent on time? No 04/04/2024 Number of Times Moved in the Last Year Not on fi le 04/04/2024 At any time in the past 12 m [facility], were you homeless or living in a penitentiary (including now)? No 04/04/2024 Comments No Sex and Gender Information Value Date Recorded Sex Assigned at Female 09/23/2022 1:56 PM EDT Legal Sex Female 10:03 PM EDT Gender Identity Gender Neutral 07/01/2023 10:45 AM EDT Sexual Orientation Choose not to disclose 2023 10:45 AM EDT Occupation Industry Job Start Date Job End Date [employer] Not on file Not on file Not on file documented as of this encounter Miscellaneous Notes * Telephone Encounter - Adelso Garber - 08/28/2024 9:15 AM EDT Called PT mother and let her know she can now view on [employer] * Telephone Encounter - Gentry Gagnon MD - 08/27/2024 4:58 PM EDT PFT interpretation has been entered * Telephone Encounter - Antelmo Sahu MD - 08/27/2024 3:18 PM EDT It looks like Dr. Gagnon saw the patient that day. I think if he adds an interpretation it will be released Gentry, can you addend your visit that day and finalize the PFT read? * Telephone Encounter - Margarita Joseph - 08/27/2024 10:55 AM EDT Patient's mother is requesting for the PFT test results be available for them to view. [phone] documented in this encounter Plan of Treatment Not on file documented as of this encounter Visit Diagnoses Not on filedocumented in this encounter Care Teams Dietary Cook Relationship Specialty Start Date End Date Lela Miller MD [address] [place] [address] PCP - General Family Medicine 09/29/20 documented as of this encounter
--- OUTSIDE RECORDS SUMMARY | 2024-11-26 15:45 | XMS_ITS | Clinical Summary ---
Author Organization [facility] Address [address] [place] [id number] Phone Care Team Providers Care Finishing Lab Technician Name Role Phone Lela Miller MD Primary Care Provider Allergies Active Allergy Reactions Criticality Noted Date Comments Oxycodone Nausea and/or Vomiting 02/23/2022 Medications fluticasone propionate (FLOVENT HFA) 110 mcg/actuation inhaler Inhale 2 puffs into the lungs. 2 Active ferrous sulfate (IRON ORAL) Take by mouth daily. Active magnesium 200 mg Tab Take 200 mg by mouth. Active cholecalciferol (VITAMIN D3) 25 MCG (1,000 unit) tablet Take 1,000 Units by mouth daily. Active cyclobenzaprine (FLEXERIL) 10 MG tablet Take 1 tablet (10 mg total) by mouth 3 (three) times a day as needed. 20 tablet 3 Active Additional Information Patient not taking.Reported on 12/25/2022 QUEtiapine (SEROQUEL) 50 MG tablet Take 50 mg by mouth nightly at bedtime. Active ID-levalbuterol HFA ([id number]) 45 mcg/inh inhaler Inhale 2 puffs into the lungs as needed for other (free text field). Administer each puff 1 minute apart. Active Active Problems Problem Noted Date Diagnosed Date Suicidal ideation 12/25/2022 Social History Tobacco Use Types Packs/Day Years Used Date Smoking Tobacco: Never Smokeless Tobacco: Never Tobacco Cessation:Counseling Given: Not Answered Alcohol Use Standard Drinks/Week Comments Yes 0 (1 standard drink = 0.6 oz pur e alcohol) Education Answer Date Recorded Are you interested in more education? Not on kala e 06/19/2022 Are you concerned about learning? Not on file 06/19/2022 No 06/19/2022 No 06/19/2022 Digital Access Answer Date Recorded No 07/20/2022 No 07/20/2022 Reliable internet access at home? Not on file 07/20/2022 Device with a working camera? Not on file Intimate Partner Violence Answer Date R ecorded Are you denied basic needs s uch as food, clothing, or medical care? No 12/24/2022 In the past 12 months have y ou been in a relationship with a person who hurts, threatens, or tries to control you? No 12/24/2022 Are you denied basic needs s uch as food, clothing, or medical care? No 12/24/2022 In the past 12 months have y ou been in a relationship with a person who hurts, threatens, or tries to control you? No 12/24/2022 Comments No Sex and Gender Information Value Date Recorded Sex Assigned at Female 12/24/2022 11:38 PM EDT Legal Sex Female 3:39 PM EST Gender Identity Non-binary 12/24/2022 11:38 PM EDT Sexual Orientation Queer 12/24/2022 11 :38 PM EDT Last Filed Vital Signs Vital Sign Reading Time Taken Comments Blood Pressure 133/75 12/25/2022 6:43 PM EDT Pulse 60 12/25/2022 6:43 PM EDT Temperature 36.2 C (97.2 F) 12/25/2022 6:43 PM EDT Respiratory Rate 18 12/25/2022 6:43 PM EDT Oxygen Saturation 99% 12/25/2022 6:43 PM EDT Inhaled Oxygen Concentration - - Weight 70.3 kg (155 lb) 12/24/2022 11:42 PM EDT Height 177.8 cm (5' 10 ) 12/24/2022 11:42 PM EDT Body Mass Index 22.24 12/24/2022 11:42 PM EDT Plan of Treatment Upcoming Encounters Date Type Department Care Team (Late st Contact Info) Description 04/18/2025 1:00 PM EST Office Visit [facility] [address] [place] [address] Luis Jasmine MD [address] [facility] [address] [place] [address] [email or web address] Health Maintenance Due Date Last Done Comments COMBINED DTaP,Tdap,Td (3 - T d or Tdap) 06/19/2014 12/19/2013, 03/27/2004 DEPRESSION SCREENING 2014 SMOKING Hx and SMOKELESS TOBACCO SCREENING 12/16/2015 HPV VACCINES (1 - 3-dose series) 2017 MENINGOCOCCAL VACCINES (B) ( 1 of 2 - Standard) 2018 ADOLESCENT UNIVERSAL LIPID SCREENING 12/16/2019 HEPATITIS C SCREENING 2020 HIV ONE-TIME SCREENING (18-6 5 YEARS) 2020 PAP SMEAR 12/16/2023 Adult Td,Tdap Booster 12/20/2023 12/19/2013 INFLUENZA VACCINE (#1) 2024 COVID-19 VACCINE ( - 2024-2 6 season) 2024 MMR VACCINES Completed 12/20/2006, 01/03/2004 MENINGOCOCCAL VACCINES (ACWY) Completed , 12/19/2013 HEPATITIS A VACCINES Aged Out No long er eligible based on patient's age to complete this topic HIB VACCINES Aged Out No longer eligi ble based on patient's age to complete this topic PNEUMOCOCCAL VACCINES (0-49 years) Aged Out No longer eligible b ased on patient's age to complete this topic Medical Devices Not on file Insurance AETNA HMO POS EPO GENERIC COMMERCIAL AETNA O POS EPO GENERIC COMMERCIAL [facility] EPO [facility] POS EPO AETNA O POS EPO GENERIC COMMERCIAL AETNA O POS EPO AETNA O POS EPO GENERIC COMMERCIAL AETNA O POS EPO GENERIC COMMERCIAL AETNA HMO POS EPO GENERIC COMMERCIAL Care Teams Finishing Lab Technician Relationship Specialty Start Date End Date Lela Miller MD [address] [facility] [address] [place] [address] PCP - General Family Medicine 02/23/22 Additional Source Comments The information contained in this document represents components of the legal health record. It is not the complete legal health record.[facility]
--- OUTSIDE RECORDS SUMMARY | 2024-11-26 15:45 | XMS_ITS | Clinical Summary ---
Author Organization [facility] Address [address] [place] [id number] Care Team Providers Care [employer] Name Role Phone Lela Miller MD Primary Care Provider Allergies Active Allergy Reactions Criticality Noted Date Comments Oxycodone GI Intolerance High 07/01/2023 Medications cetirizine (ZyrTEC) 10 mg tablet Take 1 tablet (10 mg total) by mouth daily Active multivitamin capsule 05/05/19 20 Active magnesium 200 mg tablet Take 1 tablet (200 mg total) by mouth Active ferrous sulfate (IRON ORAL) Take by mouth daily Active lamotrigine 300 mg TR24 Take by mouth Acti ve zolpidem (AMBIEN) 10 mg tablet Take 1 tablet (10 mg total) by mouth Active escitalopram (LEXAPRO) 5 mg tablet 11/13/19 24 Active montelukast (SINGULAIR) 10 mg tablet TAKE 1 TABLET BY MOUTH EVERY DAY AT NIGHT 90 tablet 02/07/20 24 Active hydrOXYzine (ATARAX) 50 mg tablet 1 tablet (50 mg total) 03/02/19 25 Active LORazepam (ATIVAN) 0.5 mg tablet 2 tablets (1 mg total) 01/15/20 24 Active levalbuterol (XOPENEX HFA) 45 mcg/actuation inhaler Inhale 2 puffs every 4 hours as needed for wheezing or shortness of breath 15 gram 3 04/20/19 25 026 Active mometasone (ASMANEX HFA) 200 mcg/actuation HFAA Inhale 1 inhaler (200 mcg total) 2 times a day 13 gram 1 07/19/19 25 Active LOW-OGESTREL (28) 0.3-30 mg-mcg tablet Take 1 tablet by mouth daily 84 tablet 1 11/21/19 25 026 Active LOW-OGESTREL (28) 0.3-30 mg-mcg tablet Take 1 tablet by mouth daily 84 tablet 1 09/18/19 25 025 Discontinued(*R eorder/Change Pharmacy (sends notification to pharmacy)) Active Problems Problem Noted Date Diagnosed Date Mood disorder 02/04/2023 Thoracic back pain, unspecif ied back pain laterality, unspecified chronicity 12/26/2022 Suicidal ideation 12/26/2022 Irregular menses 08/28/2021 Overview (09/29/2021): 08/2021 - Normal transabdominal pelvic ultrasound Scoliosis 06/30/2021 Overview (09/29/2021): mild History of COVID-19 02/17/2021 Psoriasis 09/29/2020 Mild persistent asthma without complication 03/25 Eczema, unspecified type 04/12/2017 Resolved Problems Problem Noted Date Diagnosed Date Resolved Date Acute cough 07/01/2023 07/05/2023 Gastritis 12/26/2020 09/29/2021 Overview (06/30/2021): Se[place] in [place] last month (currently a freshman at [employer]). Had complaints of daily abdominal pain and [...] GI per patient/parent request. Advised to call [facility] GI directly to schedule. Last Assessment & Plan: Seen [place]CP in [place] last month (currently a freshman at [employer]). Had complaints of daily abdominal pain and [...] GI per patient/parent request. Advised to call [facility] GI directly to schedule. Encounters Date Type Department Care Team Description 11/20/2024 Refill [facility] [address], [address] [place], [place] [id number] Norma Briceno, DO 09/16/2024 Refill [facility] [address], [address] [place], [place] [id number] Norma Briceno, DO 08/27/[address] [facility] Pulmonology, Sleep, Allergy & Critical Care Medicine [address] [place] [phone] Gentry Gagnon MD Pulmonary Function Testing from Last 3 Months Immunizations Immunization Administration Dates Next Due DTaP / Hib / IPV 06/19/2003,04/18/2003, 3 DTaP / IPV 12/20/2006 DTaP, Unspecified 03/27/2004 H1N1 Inj 02/05/2009,12/30/2008 HPV Quadrivalent 07/14/2017,12/30/2016 Hep A, 2 Dose Pediatrics, 1-18 years 12/20/2006, 12/24/2005 Hep B, Adolescent Or Pediatr ic, 0-19 years 06/19/2003,04/18/2003,02/12/2003 Hib, unspecified 03/27/2006 Influenza (6 Months Up) (PF) Quadrivalent IM 11/28/2020 Influenza 2019-20 (2-49 Yr) Quadrivalent Nasal (Live) 11/02/2013,10/27/2012,10/26/2011,11/11,12/12/2009 Influenza 2019-20 (6-35 Roberto hs) (PF) Quadrivalent IM 10/10/2019,11/27/2004,01/03/2004,11/27 Influenza 2019-21 (6 Months Up) (PF) Quadrivalent IM 10/11/2019 Influenza, Unspecified 11/18/2018,2017,10/27/2016,12/16,11/13/2014,11/19/2008,12/21/2007 ,12/08/2006,12/03/2005 MMR 12/20/2006,01/03/2004 Meningococcal Group B (Bexsero) 10/20/2019,09/10 Pneumococcal Conjugate 13-Valent 007,09/20/2003,04/18/2003,02/12 SARS-COV-2 (COVID-19/MODERNA ) mRNA-1273 (PF) IM (LNP-S) 07/06/2021 SARS-COV-2 (COVID-19/PFIZER) mRNA [id number] (PF) IM (LNP-S) EUA (purple) 10/24/2020,04/11/2020,03/19/2020 Tdap 10/11/2023,12/19/2013 Varicella (Chicken Pox) 12/21/2007,01/03/2004 meningococcal MCV4P 09/11/2019,12/19/2013 Family History Medical History Relation Comments Allergies Brother Mental illness Brother Gilbert's syndrome Father Coronary artery disease Maternal Grandfather Heart attack Maternal Grandfather Heart disease Maternal Grandfather Pancreatic cancer Maternal Grandfather Colon cancer Maternal Grandmother Heart disease Maternal Grandmother Hypertension Maternal Grandmother Hypertension Maternal Uncle Breast cancer Mother Heart attack Paternal Grandfather Heart disease Paternal Grandfather Hypertension Paternal Grandfather Relation Status Comments Brother Alive Father Alive Maternal Grandfather Maternal Grandmother Alive Maternal Uncle Mother Alive Paternal Grandfather Alive Paternal Grandmother Alive Social History Tobacco Use Types Packs/Day Years [...] from your doctor or pharmacy? Never 04/04/2024 [employer] Answer Date Recorded In the past 12 months has th e electric, gas, oil, or water company threatened to shut off services in your [...] often do you attend chur ch or rastafari services? Never 04/04/2024 Do you belong to any clubs o r organizations such as denominational groups, unions, fraternal or athletic groups, or [...] Date Recorded PHQ-2 Total Score 5 10/11/2023 [facility] - Occupational Stress Questionnaire Answer Date Recorded [...] place to sleep or slept in a senior living (including now)? No 09/28/2023 Housing Stability Vital Sign Answer Mak e Recorded In the last 12 months, was t here a time when you were not able to pay the mortgage or rent on time? No 04/04/2024 Number of Times Moved in the Last Year Not on fi le 04/04/2024 At any time in the past 12 m [place], were you homeless or living in a senior living (including now)? No 04/04/2024 Comments No Sex and Gender Information Value Date Recorded Sex Assigned at Female 09/23/2022 1:56 PM EDT Legal Sex Female 10:03 PM EDT Gender Identity Gender Neutral 07/01/2023 10:45 AM EDT Sexual Orientation Choose not to disclose 2023 10:45 AM EDT Occupation Industry Job Start Date Job End Date [employer] Not on file Not on file Not on file Last Filed Vital Signs Vital Sign Reading Time Taken Comments Blood Pressure 128/80 04/06/2024 11:40 AM EST Pulse 80 04/06/2024 11:40 AM EST Temperature 36.4 C (97.6 F) 04/06/2024 11:40 AM EST Respiratory Rate 18 06/30/2021 8:30 AM EDT Oxygen Saturation 98% 04/06/2024 11:40 AM EST Inhaled Oxygen Concentration - - Weight 71.2 kg (157 lb) 10/11/2023 3:10 PM EDT Height 178.8 cm (5' 10.4 ) 04/06/2024 11:[address] Body Mass Index 22.53 10/11/2023 3:10 PM EDT Plan of Treatment Health Maintenance Due Date Last Done Comments HIV Screening 2002 Pneumococcal Vaccine: Ped & Adult <50 (1 of 1 - PPSV23) 2008 03/27/2006, 09/20/2003, 04/18/2003, Additional history exists [facility] ANNUAL DEPRESSION SCREENING 2014 [facility] BLOOD PRESSURE 140/ 90 OR UNDER 2020 HEPATITIS C SCREENING 2020 Hepatitis B Infection Screening 2020 Cervical Cancer 12/16/2023 INFLUENZA VACCINE 09/21/2024 11/28/2020, , 10/11/2019, Additional history exists [facility] BMI DOCUMENTED 10/10/2024 10/11/2023 Preventative/Well Visit 10/10/2024 10/11/19 24, 10/11/2023, 10/11/2023, Additional history exists COVID VACCINE ( season) 2024 07/06/2021, 10/24/2020, 04/11/2020, Additional history exists [facility] ACCESS TO PREVENTIVE/AMBULATORY VISIT 10/10/2025 10/11/2023, 09/23/2022, 09/29/2021 Hepatitis B Vaccines Completed 06/19/2003, 04/18/2003, 02/12/2003 Insurance AETNA PPO/POS/INDEMNITY AETNA PPO/POS/INDEMNITY AETNA PPO/POS/INDEMNITY AETNA PPO/POS/INDEMNITY Advance Directives Documents on File Type Date Recorded Patient Commercial Attache Expl anation Power of Instructional Technology Specialist 10/20/2021 3:02 PM SFP20 12/10/29 POA Care Teams [employer] Relationship Specialty Start Date End Date Lela Miller MD [address] [place] [id number] PCP - General Family Medicine 09/29/20
== END 2024-11-26 13:45 | disposition home or self-care (01) ==
PROVIDERS: Visit Provider Hospitalist
DX: J45.40 Moderate persistent asthma, uncomplicated (principal); J30.9 Allergic rhinitis, unspecified
CPT/HCPCS: 99204